=== PATIENT | male | born 1960 | race Two or more races ===

== ENCOUNTER 2017-11-18 12:15 | Emergency (ER) | payer OTHER ==
[~2017-11-18] VITALS: Ht 162.6 cm; Wt 72.6 kg
[2017-11-18] MEDS ORDERED: Norco 5mg/325mg tab ORAL ONE (12:45)
--- NOTE | 2017-11-18 13:26 | Diagnostic Imaging Report ---
Indication: Pain Technique: XRAY Wrist Complete L Comparison: None Findings: There is a nondisplaced fracture of the distal radius. The fracture line appears to extend to the articular surface. There is overlying soft tissue swelling. Joint spaces and anatomic alignment appear preserved. No radiopaque foreign body identified. There is a cortically based lesion with narrow zone of transition in the distal shaft of the ulna. This lesion is mildly expansile. It is continuous with the medullary cavity. There is no associated periosteal reaction or cortical irregularity. This may represent an osteochondroma or bony exostosis. Impression: Nondisplaced fracture of the distal radius as above. Benign-appearing cortically based lesion in the distal ulna as detailed above likely representing an osteochondroma or bony exostosis. Confirmation with MRI recommended. This can be obtained on a nonemergent basis.
--- NOTE | 2017-11-18 14:02 | Emergency Room Report ---
History of Present Illness General Chief Complaint: Multiple Trauma/Fall Source: Patient Present Illness HPI 56-year-old male presents to the emergency department complaining of left wrist pain status post mechanical trip and fall on the sidewalk just prior to arrival. Patient states that he bumped his head however he did not lose consciousness. Patient reports poor out of 10 in severity pain to the left wrist which is exacerbated upon movement or palpation. He denies neck or back pain he denies taking blood thinning medications. He denies open wounds or bleeding. Denies numbness tingling or loss of sensation or gross motor movements of the extremities, incontinence of bowel or bladder. Denies CP, Palpitations, LOC, AMS, dizziness, Changes in Vision, Sensation, paresthesias, or a sudden severe headache. Allergies: Coded Allergies: No Known Allergies (Unverified , 11/18/17) Patient History Past Medical History: see triage record Past Surgical History: none Pertinent Family History: none Immunizations: UTD Reviewed Nursing Documentation: PMH: Agreed, PSxH: Agreed Nursing Documentation-PMH Hx Hypertension: Yes Review of Systems All Other Systems: negative except mentioned in HPI Physical Exam Vital Signs Date Time Temp Pulse Resp B/P (MAP) Pulse Ox O2 Delivery O2 Flow Rate FiO2 11/18/17 12:19 98.2 78 16 146/80 98 Room Air Sp02 EP Interpretation: reviewed, normal General Appearance: no apparent distress, alert, GCS 15, non-toxic Head: normocephalic, other - 2cm hematoma to the left side of forehead, no lacerations, no bony ttp. Eyes: bilateral eye normal inspection, bilateral eye PERRL ENT: hearing grossly normal, normal voice Neck: full range of motion, no bony tend Respiratory: chest non-tender, lungs clear, normal breath sounds, speaking full sentences Cardiovascular #1: regular rate, rhythm Rectal: deferred Genitourinary: normal inspection Musculoskeletal: back normal, gait/station normal, normal range of motion, swelling - left wrist, tender - TTP to the left wrist, swelling noted, no bruises or abrasions, NVI Neurologic: alert, oriented x3, responsive, motor strength/tone normal, sensory intact, speech normal, grossly normal Psychiatric: judgement/insight normal Skin: no rash, warm/dry, well hydrated, hematoma - 2cm to the left forehead. Medical Decision Making PA Attestation Dr. Brink is my supervising Physician whom patient management has been discussed with. Diagnostic Impression: Primary Impression: Distal radial fracture Qualified Codes: S52.502A - Unspecified fracture of the lower end of left radius, initial encounter for closed fracture Additional Impression: Forehead contusion Qualified Codes: S00.83XA - Contusion of other part of head, initial encounter ER Course 56-year-old male presents to the emergency department complaining of left wrist pain status post mechanical trip and fall on the sidewalk just prior to arrival. Patient states that he bumped his head however he did not lose consciousness. Patient reports poor out of 10 in severity pain to the left wrist which is exacerbated upon movement or palpation. He denies neck or back pain he denies taking blood thinning medications. He denies open wounds or bleeding. Denies numbness tingling or loss of sensation or gross motor movements of the extremities, incontinence of bowel or bladder. Denies CP, Palpitations, LOC, AMS, dizziness, Changes in Vision, Sensation, paresthesias, or a sudden severe headache. Ddx considered but are not limited to Fracture, dislocation, contusion, Sprain/ Strain/Spasm, subdural hematoma/ bleed, just to name a few. Vital signs: are WNL, pt. is afebrile H&PE are most consistent with musculoskeletal injury will perform imaging to r/ o fractures/dislocations. ORDERS: - X-ray left Wrist 3 views - POSITIVE for fx, no Dislocation, or significant soft tissue injury, per preliminary read in ED, and signed by SERGEY Bradley, my supervising physician has reviewed, and agrees with my interpretation. ED INTERVENTIONS: - -[ ] Splint applied by machine packaging technician. Pt. remains neurovascularly intact. -- [ ] arm Sling applied by machine packaging technician. Pt. remains neurovascularly intact. DISCHARGE: At this time pt. is stable for d/c to home. Will provide printed patient care instructions, and any necessary prescriptions. Care plan and follow up instructions have been discussed with the patient prior to discharge. Other X-Ray Diagnostic Results Other X-Ray Diagnostic Results : X-Ray ordered: Left Wrist # of Views/Limited Vs Complete: 2 View Indication: Pain EP Interpretation: Yes PA Xray: Interpretation reviewed, by supervising MD, and agrees with findings. Interpretation: no dislocation, no soft tissue swelling, other - Positive for non-displaced distal radial fracture. Impression: Other - Positive for non-displaced distal radial fracture. Electronically Signed by: Jeannine Bradley PA-C Last Vital Signs Date Time Temp Pulse Resp B/P (MAP) Pulse Ox O2 Delivery O2 Flow Rate FiO2 11/18/17 12:19 98.2 78 16 146/80 98 Room Air Disposition: HOME, SELF-CARE Condition: Stable Scripts Hydrocodone Bit/Acetaminophen 5-325* (NORCO 5-325*) 1 Each Tablet 1 TAB ORAL Q6H Y for For Pain, #10 TAB 0 Refills Prov: Jeannine Bradley 11/18/17 Ibuprofen* (MOTRIN*) 600 Mg Tablet 600 MG ORAL THREE TIMES A DAY, #30 TAB 0 Refills Prov: Jeannine Bradley 11/18/17 Referrals: NOT CHOSEN IPA/MD,REFERRING (PCP) Departure Forms: Return to Work Return to Work Date: Nov 22, 2017 Work Restrictions: No Heavy Lifting Other Restrictions: limited use of left hand x 2 weeks. Return to Full Activity: Dec 06, 2017 Patient Instructions: Contusion, [id number]-[id number], Wrist Fracture Additional Instructions: Take medications as directed. Follow up with a Primary Care Provider in 3-5 days, even if your symptoms have resolved. --Please review list of primary care clinics, if you do not already have a primary care provider Return sooner to ED if new symptoms occur, or current symptoms become worse. Do not drink alcohol, drive, or operate heavy machinery while taking [place] as this may cause drowsiness. - Please note that this Emergency Department Report was dictated using [employer] technology software, occasionally this can lead to erroneous entry secondary to interpretation by the dictation equipment. Jeannine Bradley Nov 18, 2017 14:02
[2017-11-18] MEDS ORDERED: NORCO 5-325 TA1 EACH ORAL (14:05)
[2017-11-18] MEDS ORDERED: IBUPROFEN600 MG ORAL (14:05)
[2017-11-18 14:23] VITALS: BP 146/80
[2017-11-18 14:24] VITALS: BP 146/80
== END 2017-11-18 14:25 | disposition home or self-care (01) ==
LOC: EMR 13:07
DX: S52.502A Unspecified fracture of the lower end of left radius, initial encounter for closed fracture (principal); S00.83XA Contusion of other part of head, initial encounter; I10 Essential (primary) hypertension; W01.0XXA Fall on same level from slipping, tripping and stumbling without subsequent striking against object, initial encounter; Y92.480 Sidewalk as the place of occurrence of the external cause
CPT/HCPCS: 99283